=== PATIENT | male | born 1960 | race Caucasian/White ===

== ENCOUNTER 2017-05-11 11:47 | Emergency (ER) | payer BC ==
[~2017-05-11] VITALS: Ht 180.3 cm; Wt 101.5 kg
[2017-05-11 12:40] LABS: HEMATOCRIT 51.9 % (39.0-50.0); HEMOGLOBIN 17.5 g/dl (14.0-18.0); IMMATURE GRANULOCYTES 0.2 % (0.0-1.0); MEAN CELL VOLUME 86.9 fL CALC (80.0-100.0); MEAN CORPUSCULAR HGB 29.3 pG CALC (26.0-32.0); MEAN CORPUSCULAR HGB CONC 33.7 g/L CALC (32.0-36.0); NEUT# 5.34 thou/uL (1.82-7.42); RED BLOOD COUNT 5.97 mill/uL (4.70-6.10); RED CELL DISTRI WIDTH 12.2 % (11.5-15.5)
[2017-05-11 12:59] LABS: ALBUMIN 4.7 g/dL (3.2-5.0); ALKALINE PHOSPHATASE 77 u/l (38-126); ANION GAP 22 (6-22 (CALC)); BILIRUBIN, TOTAL 1.5 mg/dL (0.0-1.4); BUN 21 mg/dL (9-20); BUN/CREATININE RATIO 21 (12-20 (CALC)); CARBON DIOXIDE 26 mmol/l (22-30); CHLORIDE 98 mmol/l (95-108); GFR > 60 ML/MIN (>=60 (CALC)); GFR FOR AFR.AMER. > 60 ML/MIN (>=60 (CALC)); POTASSIUM 4.9 mmol/l (3.5-5.1); SGOT/AST 31 u/l (17-59); SGPT/ALT 38 u/l (21-72); SODIUM 141 mmol/l (137-146); TOTAL PROTEIN 8.6 g/dL (6.3-8.2)
[2017-05-11 13:11] LABS: MYOGLOBIN 32 ng/mL (0 - 121)
[2017-05-11] MEDS ORDERED: LISINOPRIL20 MG PO (14:43)
[2017-05-11 14:46] VITALS: BP 178/92
== END 2017-05-11 14:58 | disposition home or self-care (01) | DRG 305 ==
LOC: ED 11:47
PROVIDERS: Emergency Medicine
DX: I10 Essential (primary) hypertension (principal); E11.9 Type 2 diabetes mellitus without complications; E78.00 Pure hypercholesterolemia, unspecified